=== PATIENT | female | born 1950 | race Caucasian/White ===

== ENCOUNTER 2025-01-04 11:47 | Day surgery (SDC) | payer MEDICARE, SELFPAY ==
[2025-01-02 14:35] VITALS: BMI 28.2
[2025-01-04] MEDS: LACTATED RINGERS 1000ML 1,000 ML 50 ML IV (12:08)
[2025-01-04 12:11] VITALS: BP 117/60; PULSE 66; RESP 18; TEMP 36.4; O2SAT 98
[2025-01-04 12:24] LABS: POC Glucose,Bedside 117 (70-110)
--- NOTE | 2025-01-04 12:24 | EXP.ANES.CKL ---
[facility] Disclaimer: The information contained in this section may have been updated after the patient was seen, as this information can be updated by other users. Medical History IBS (irritable bowel syndrome) Hypertension Diverticulitis Surgical History History of cholecystectomy H/O tubal ligation History of elbow surgery History of hip replacement Family History Father Leukemia Social History Smoking Status: Never smoker alcohol intake: never substance use type: denies use current occupational status: retired Travel in the last 8 weeks?: None [facility] Anesthesia Checklist Patient Identification Patient Identification: Arm Band and Verbal (Name & ) Structural Data Admitted From: Home Planned Operative Procedure/s: colonoscopy Consent for Planned Operative Procedure(s) Verified: Yes Verified Documents: Surgical Consent NPO Status Verified Time NPO: 00:00 Chart Verification Results Verified: None Additional verifications Fingerstick Blood Glucose: 117 Anesthesia Reactions: No Hx Blood Transfusions: No Blood Transfusion Reaction: No Airway Assessment Mallampati Score:: Class II C-Spine Mobility Assessed: Yes TMJ Mobility Assessed: No Dentition: Dentures-good fit Neurological Assessment Level of Consciousness: Awake, Alert and Appropriate Hx Seizures: No Numbness or tingling in extremities: No Anesthesia Plan Anesthesia Risk discussed: Yes Anesthesia Plan: Verified ASA Class: II Anesthesia Type: MAC
[2025-01-04 14:06] VITALS: O2SAT 100
--- NOTE | 2025-01-04 14:22 | EXP.HP ---
History of Present Illness *Admission Date: 01/04/25 *Reason for visit:: Personal history of colon polyps *History of present illness: Mrs. Alexander is a 74-year-old female with a personal history of adenomatous colon polyps who is here for surveillance colonoscopy. The examination is deemed medically necessary for surveillance colonoscopy. The patient has been seen, interviewed and examined prior to the procedure by both myself and the anesthesia provider. [facility] Disclaimer: The information contained in this section may have been updated after the patient was seen, as this information can be updated by other users. Medical History (Updated 01/04/25 @ 14:22 by Armond Pleitez II, MD) IBS (irritable bowel syndrome) Hypertension Diverticulitis Surgical History History of cholecystectomy H/O tubal ligation History of elbow surgery History of hip replacement Family History Father Leukemia Social History (Updated 01/04/25 @ 12:26 by Ari Allen CRNA) Smoking Status: Never smoker alcohol intake: never substance use type: denies use current occupational status: retired Travel in the last 8 weeks?: None Have you lived/traveled outside [place] in past 30 days?: No Contact w/someone who lives/traveled outside [place] past 30 days?: No Exposure to someone with infectious disease in past 14 days?: No Do you have a fever (greater than 100.4 F or 38 C)?: No Have you tested positive for COVID-19?: No Exposed to someone with COVID-19 in past 14 days?: No Do you have a sore throat?: No Do you have a cough?: No Do you have any weakness?: No Do you have any diarrhea?: No Are you experiencing any unusual bleeding?: No Do you have any muscle aches/pain?: No Do you have any abdominal pain?: No Are you experiencing loss of taste or smell?: No Review of Systems Review of Systems Review of systems (narrative): Negative *Cardiovascular Comments: Negative *Gastrointestinal Comments: Negative *Genitourinary Comments: Negative *Musculoskeletal Comments: Negative *Neurologic Comments: Negative Meds Home Medications and Allergies Home Medications ?Medication ?Instructions ?Recorded ?Confirmed ?Type aspirin 81 mg capsule 81 mg PO DAILY 01/02/25 01/04/25 History atorvastatin 10 mg tablet 10 mg PO DAILY 01/02/25 01/04/25 History glipizide 5 mg tablet 5 mg PO DAILY 01/02/25 01/04/25 History lisinopril 10 mg tablet 10 mg PO DAILY 01/02/25 01/04/25 History loratadine 10 mg tablet (Claritin) 10 mg PO DAILY 01/02/25 01/04/25 History mfkx-plge-zele-m gagx-zi-siyme 50 tab PO DAILY 01/02/25 01/04/25 History tablet metoprolol succinate 25 mg 25 mg PO DAILY 01/02/25 01/04/25 History tablet,extended release 24 hr omeprazole 20 mg capsule,delayed 20 mg PO DAILY 01/02/25 01/04/25 History release sertraline 100 mg tablet 100 mg PO DAILY 01/02/25 01/04/25 History New Prescriptions to Start Prescriptions: Allergies Allergy/AdvReac Type Severity Reaction Status Date / Time Iodinated Contrast Media Allergy Rash Verified 01/04/25 12:01 Penicillins Allergy Rash Verified 01/04/25 12:01 Sulfa (Sulfonamide Allergy Rash Verified 01/04/25 12:01 Antibiotics) Exam Data for Last 24 hours Vital signs and Labs for Last 24 Hours: Temp Pulse Resp BP Pulse Ox O2 Del Method O2 Flow Rate 97.6 F 66 18 117/60 98 Nasal Cannula 5 01/04/25 12:11 01/04/25 12:11 01/04/25 12:11 01/04/25 12:11 01/04/25 12:11 01/04/25 14:06 01/04/25 14:06 Laboratory Results - last 24 hr 01/04/25 12:14: POC Glucose 117 H I & O for Last 24 hours: Intake & Output 01/01/25 01/02/25 01/03/25 01/04/25 23:59 23:59 23:59 23:59 Weight 175 lb *Routine HEENT Exam Head: Present normocephalic Eye: Present EOMI and PERRL ENT: Present mucous membranes moist *Routine Neck Exam Neck: Present supple *Routine Respiratory Exam Respiratory: Present CTA bilaterally *Routine Cardiovascular Exam Cardiovascular: Present RRR *Routine Abdominal Exam Abdominal: Present soft and normoactive bowel sounds; Absent tenderness *Routine Rectal Exam Rectal:: deferred *Routine Genitalia Exam Genitalia:: deferred *Routine Extremities Exam Extremities: Absent cyanosis, clubbing or edema *Routine Skin Exam Skin: Present warm; Absent rash *Routine Neurological Exam Neurological: Present alert and oriented X3 Assessment and Plan *Assessment and plan (1) Personal history of adenomatous and serrated colon polyps: Status: Acute Category: Medical Code(s): Z86.0101 - Personal history of adenomatous and serrated colon polyps Plan A/P: 1. Personal history of adenomatous colon polyps is the preprocedural diagnosis. The patient will be anesthetized/sedated using MAC sedation. The patient has been seen and examined. Cardiac and lung assessment prior to the examination is stable. Proceed with planned surveillance colonoscopy.
--- NOTE | 2025-01-04 14:23 | HMH.PROCNOTE ---
[facility] Procedure Note Date: 01/04/25 Time: 14:36 Procedure Note:: Colonoscopy Procedure Report: Colonoscopy with cold snare polypectomy Endoscopist: Armond Pleitez II, MD Referring physician: Mando Ryder MD Date of Procedure: January 04, 2025 Equipment: Olympus 190 variable stiffness pediatric colonoscope Sedation: MAC sedation Indication: Mrs. Alexander is a 74-year-old female who is here for follow-up surveillance colonoscopy secondary to a personal history of colon polyps. She has had several colonoscopies with fl and her last colonoscopy was at [facility] (Joanna Jaimes MD) 4 years ago when she had been admitted with E. coli. At that time she had a single polyp removed. She has had several polyps removed over the course of her colonoscopies. The patient presently reports no abdominal pain, rectal bleeding, weight loss or family history of colon cancer. She does have some mild chronic constipation which may be related to her medicines. She was diagnosed with stage I uterine cancer. Procedure: Prior to the procedure, a history and physical exam was performed, and patient's medications and allergies were reviewed. The risks, benefits and alternatives of the sedation and procedure were discussed with the patient. All questions were answered and informed consent was obtained. The patient was brought to the procedure room. Patient identification and proposed procedure were verified by the physician and the nurse. The patient was placed in a left lateral decubitus position and the scope was passed under direct vision. Throughout the procedure, the patient's blood pressure, pulse, and oxygen saturations were monitored continuously. The colonoscopy was accomplished without difficulty. The patient tolerated the procedure well. Findings: On digital rectal examination there was normal rectal tone. There were no external hemorrhoids. The colonoscope was introduced through the anal canal to the rectum and advanced to the cecum. The ileocecal valve and appendiceal orifice were identified. The scope was advanced a short distance into the ileum which appeared grossly normal. The scope was then withdrawn into the colon. The cecum, ascending and transverse colon and mucosa were grossly normal. There were 2 diminutive polyps (descending x 1 (3 mm) and sigmoid x 1 (3 mm)). Both of these were removed via cold snare polypectomy. There were extensively scattered diverticuli throughout the descending and sigmoid colon (LEFT colon). The rectum itself was normal. Upon retroflexion within the rectum there were grade 2 internal hemorrhoids. The preparation was excellent throughout with [place] Preparation Score of 9. The cecal time was 12 minutes. Impression: 1. Diminutive colonic polyps x 2 2. Extensive left-sided diverticulosis 3. Grade 2 internal hemorrhoids Plan: I will follow-up the polyp histology. I would encourage continued bulking psyllium (Konsyl) supplementation on a long-term daily maintenance basis. I will discuss the findings with the patient and family.
[2025-01-04 14:38] VITALS: BP 123/52; PULSE 66; RESP 16; TEMP 36.7; O2SAT 95
[2025-01-04 14:48] VITALS: BP 106/56; PULSE 62; RESP 16; O2SAT 96
[2025-01-04 14:58] VITALS: BP 110/74; PULSE 61; RESP 20; O2SAT 97
== END 2025-01-04 15:11 | disposition home or self-care (01) ==
PROVIDERS: PCP Family Medicine; Visit Provider Internal Medicine Gastroenterology
PROC: 0DJD8ZZ Inspection of Lower Intestinal Tract, Via Natural or Artificial Opening Endoscopic (ICD-10-PCS; CPT 45378; principal; 2025-01-04 13:30)
DX: Z12.11 Encounter for screening for malignant neoplasm of colon (principal); Z86.0101 Personal history of adenomatous and serrated colon polyps; D12.4 Benign neoplasm of descending colon; D12.5 Benign neoplasm of sigmoid colon; K57.30 Diverticulosis of large intestine without perforation or abscess without bleeding; K64.1 Second degree hemorrhoids; K59.04 Chronic idiopathic constipation
CPT/HCPCS: 45385; 82962; J7120